=== PATIENT | female | born 1985 | race African-American/Black ===

== ENCOUNTER 2017-04-19 14:15 | Emergency (ER) | payer MEDICAID ==
[~2017-04-19] VITALS: Ht 154.9 cm; Wt 60.3 kg
[2017-04-19 15:45] LABS: APPEARANCE,URINE CLEAR; KETONES,URINE NEGATIVE (NEGATIVE); LEUKOCYTE ESTERASE ,URINE NEGATIVE (NEGATIVE); NITRITE,URINE NEGATIVE (NEGATIVE); PH,URINE 6.5 (4.5-8.0); PROTEIN,URINE NEGATIVE (NEGATIVE); UROBILINOGEN,URINE NORMAL MG/DL (0.0-1.0)
--- NOTE | 2017-04-19 15:49 | Emergency Room Report ---
History of Present Illness General Chief Complaint: Vaginal Source: Patient Present Illness HPI 31 YO Female presents to the ED c/o Vaginal itching and foul smelling vaginal d/ c x two weeks. denies abdominal pain, vaginal bleeding, swollen tender lymph nodes, or joint pain. pt. is 8-9 weeks . denies dysuria , reports frequency. pt. denies hx of STD. denies fevers or chills. Denies lesions/rashes elsewhere on the body. Denies new medications or body washes or creams. Denies swelling of the lips, tongue , throat or airway. Denies wheezing, or shortness of breath. Denies recent travel, recent illness or ill contacts. denies blisters, oral lesions, or sloughing of the skin. Denies CP, Palpitations, LOC, AMS, dizziness, Changes in Vision, Sensation, paresthesias, or a sudden severe headache. Allergies: Coded Allergies: PENICILLINS (Verified Allergy, Unknown, 04/19/17) Patient History Past Medical History: see triage record Past Surgical History: none Pertinent Family History: none Last Menstrual Period: 02/12/2017 Now: Yes : 4 Para: 0 Immunizations: UTD Reviewed Nursing Documentation: PMH: Agreed, PSxH: Agreed Nursing Documentation-PMH Past Medical History: No Stated History Review of Systems All Other Systems: negative except mentioned in HPI Physical Exam Vital Signs Date Time Temp Pulse Resp B/P (MAP) Pulse Ox O2 Delivery O2 Flow Rate FiO2 04/19/17 14:29 98.6 85 16 111/71 100 Room Air Sp02 EP Interpretation: reviewed, normal General Appearance: no apparent distress, alert, GCS 15, non-toxic Head: normocephalic, atraumatic Eyes: bilateral eye normal inspection, bilateral eye PERRL ENT: hearing grossly normal, normal voice Neck: full range of motion, supple/symm/no masses Respiratory: lungs clear, normal breath sounds Cardiovascular #1: regular rate, rhythm Gastrointestinal: normal bowel sounds, non tender, soft, no guarding, no rebound Rectal: deferred Genitourinary: normal inspection, no CVA tenderness, adnexa normal, ext genitalia/vag normal, other - milky white-yellowish vaginal d/c with strong odor , no CMT. Musculoskeletal: back normal, gait/station normal, normal range of motion, non- tender Neurologic: alert, oriented x3, responsive, motor strength/tone normal, sensory intact, normal gait, speech normal Psychiatric: judgement/insight normal, memory normal, mood/affect normal Skin: normal color, no rash, warm/dry, well hydrated, other - no lesions, no blisters, no vesicles. Lymphatic: no adenopathy Medical Decision Making PA Attestation Dr. kaiser is my supervising Physician whom patient management has been discussed with. Diagnostic Impression: Primary Impression: Yeast vaginitis Additional Impression: Bacterial vaginosis ER Course Pt. presents to the ED c/o Vaginal itching and foul smelling vaginal d/c x two weeks. denies abdominal pain, vaginal bleeding, swollen tender lymph nodes, or joint pain. pt. is 8-9 weeks . denies dysuria , reports frequency. pt. denies hx of STD. denies fevers or chills. Ddx considered but are not limited to UTi , STI, G & C, trichomonas, Vaginitis , cervicitis, bartholins gland cyst or cellulitis. Vital signs: are WNL, pt. is afebrile H&PE are most consistent with vaginitis ORDERS: - UA: -Wet [place]: positive for clue cells, and yeast, negative trich. ED INTERVENTIONS: - d/w pharmacy about prescribing recommendations for Flagyl during 1st trimester of . pharmacy recommended intravaginal Clindamycin for treatment of BV in . DISCHARGE: At this time pt. is stable for d/c to home. Will provide printed patient care instructions, and any necessary prescriptions. Care plan and follow up instructions have been discussed with the patient prior to discharge. Labs Test 04/19/17 14:42 Urine Color Pale yellow Urine Appearance Clear Urine pH 6.5 (4.5-8.0) Urine Specific [place] 1.015 (1.005-1.035) Urine Protein Negative (NEGATIVE) Urine Glucose (UA) Negative (NEGATIVE) Urine Ketones Negative (NEGATIVE) Urine Occult Blood Negative (NEGATIVE) Urine Nitrite Negative (NEGATIVE) Urine Bilirubin Negative (NEGATIVE) Urine Urobilinogen Normal MG/DL (0.0-1.0) Urine Leukocyte Esterase Negative (NEGATIVE) Last Vital Signs Date Time Temp Pulse Resp B/P (MAP) Pulse Ox O2 Delivery O2 Flow Rate FiO2 04/19/17 14:29 98.6 85 16 111/71 100 Room Air Disposition: HOME, SELF-CARE Condition: Stable Scripts Fluconazole (FLUCONAZOLE) 100 Mg Tablet 100 MG ORAL DAILY for 3 Days, #3 TAB 0 Refills Prov: Azul Tee 04/19/17 Clindamycin Phosphate Vag cream (Clindesse Vag Cream) 5 Gm Crm.er..g. 5.8 GM VG BEDTIME for 7 Days, GM Prov: Azul Tee 04/19/17 Patient Instructions: Bacterial Vaginosis, [facility] Additional Instructions: Take medications as directed. Follow up with a OBGYN in 2 days, even if your symptoms have resolved. --Please review list of primary care clinics, if you do not already have a primary care provider Return sooner to ED if new symptoms occur, or current symptoms become worse. - Please note that this Emergency Department Report was dictated using [email or web address] technology software, occasionally this can lead to erroneous entry secondary to interpretation by the dictation equipment. Azul Tee Apr 19, 2017 15:49
[2017-04-19] MEDS ORDERED: FLUCONAZOLE100 MG ORAL (15:51)
[2017-04-19] MEDS ORDERED: CLINDESSE5.8 GM VG (15:51)
[2017-04-19 16:03] VITALS: BP 108/68
== END 2017-04-19 16:05 | disposition home or self-care (01) ==
LOC: EMR 16:00
DX: N76.0 Acute vaginitis (principal); N95.2 Postmenopausal atrophic vaginitis
CPT/HCPCS: 81003; 87210; 99284